=== PATIENT | female | born 1945 | race Caucasian/White ===

== ENCOUNTER 2017-05-04 13:52 | Emergency (ER) | payer OTHER ==
[~2017-05-04] VITALS: Ht 157.5 cm; Wt 107.5 kg
[2017-05-04] MEDS ORDERED: PHENYLEPHRINE 0.5% 15 ML BTL NS ONE (14:00)
[2017-05-04 14:16] VITALS: BP 159/54
--- NOTE | 2017-05-04 15:20 | NUR ---
Patient ambulated to bed 7. RN evaluating patient at bedside.
--- NOTE | 2017-05-04 15:28 | NUR ---
71/F c/o right sided pressure headache since yesterday. Pt had a rhinorocket inserted into right nostril to control epistaxis. Pt states the headache worsened after the insertion. Pt c/o 10/10 pain. No bleeding noted. AOX4, cook islander speaking. VSS.
--- NOTE | 2017-05-04 15:29 | NUR ---
Patient being evaluated by Dr. Dixon at bedside.
[2017-05-04] MEDS ORDERED: ACETAMINOPHEN/CODEINE 300/30MG 1 TAB PO ONE (15:45)
[2017-05-04 16:04] VITALS: BP 157/87
--- NOTE | 2017-05-04 16:05 | NUR ---
Patient discharged with v/s stable. Written and verbal after care instructions given and explained. Patient verbalized understanding. Ambulatory with steady gait. All questions addressed prior to discharge. Advised to follow up with PMD.
== END 2017-05-04 16:05 | disposition home or self-care (01) ==
LOC: MED 13:52
DX: R51 Headache (principal); R04.0 Epistaxis; I25.10 Atherosclerotic heart disease of native coronary artery without angina pectoris; E11.9 Type 2 diabetes mellitus without complications; I10 Essential (primary) hypertension; Z90.49 Acquired absence of other specified parts of digestive tract
CPT/HCPCS: 99283

== ENCOUNTER 2019-02-21 13:30 | Emergency (ER) | payer MEDICAID, OTHER ==
[~2019-02-21] VITALS: Ht 162.6 cm; Wt 86.2 kg
[2019-02-21 13:40] VITALS: BP 159/46
--- NOTE | 2019-02-21 13:40 | NUR ---
Patient ambulated to bed 10. RN evaluating patient at bedside.
--- NOTE | 2019-02-21 13:44 | NUR ---
Dr. Julio evaluating patient at bedside.
--- NOTE | 2019-02-21 13:45 | NUR ---
c/o left ear pain and throat pain x 1 wk-- awoke today with headache and right facial droop--clear speech, ambulatory with steady gait, equal welding operator/pushes/pull, unequal forhead wrinkle----md at bedside Addendum: 02/21/19 at 1435 by MED1 AT BEDSIDE
[2019-02-21] MEDS ORDERED: MORPHINE SULFATE 4 MG/ML SYR IVP ONE (14:00)
[2019-02-21] MEDS ORDERED: AMPICILLIN/SULBACTAM 3 GM in NACL 0.9% 100 ML IV ONE (14:00)
[2019-02-21 14:14] LABS: BASOPHILS % (AUTO) 0.6 % (0.0-2.0); EOSINOPHILS # (AUTO) 0.1 K/uL (0-0.4); EOSINOPHILS % (AUTO) 3.1 % (0.0-4.0); HEMATOCRIT 38.7 % (36-48); HEMOGLOBIN 12.9 g/dL (12.0-16.0); LYMPHOCYTES # (AUTO) 1.1 K/uL (2.5-16.5); LYMPHOCYTES % (AUTO) 23.9 % (20.5-51.1); MEAN CORPUSCULAR HEMOGLOBIN 28 pg (27-31); MEAN CORPUSCULAR HGB CONC 33 g/dL (33-37); MEAN CORPUSCULAR VOLUME 84.2 fL (80-94); MONOCYTES # (AUTO) 0.4 K/uL (0.8-1.0); MONOCYTES % (AUTO) 7.9 % (1.7-9.3); NEUTROPHILS % (AUTO) 64.5 % (42.2-75.2); PLATELET COUNT (AUTO) 82 K/uL (140-450); RED CELL DISTRIBUTION WIDTH 13.5 % (11.6-13.7); WHITE BLOOD COUNT (AUTO) 4.6 K/uL (4.8-10.8)
[2019-02-21] MEDS ORDERED: AMPICILLIN/SULBACTAM 3 GM VIAL ONE (14:15)
[2019-02-21 14:27] LABS: ANION GAP 10.5 (8-16); CARBON DIOXIDE 25.2 mmol/L (21-32); CHLORIDE 106 mmol/L (98-107); CREATININE 0.7 mg/dL (0.6-1.3); GLUCOSE 264 mg/dL (74-106); POTASSIUM 3.7 mmol/L (3.5-5.1); SODIUM SERUM 138 mmol/L (136-145); UREA NITROGEN, BLOOD 10 mg/dL (7-18)
[2019-02-21 14:32] LABS: ALBUMIN 3.5 g/dL (3.4-5.0); ASPARTATE AMINOTRANSFERASE 18 U/L (15-37); TOTAL BILIRUBIN 0.7 mg/dL (0.0-1.0)
--- NOTE | 2019-02-21 14:38 | NUR ---
UNABLE TO PROVIDE URINE AT THIS TIME.
--- NOTE | 2019-02-21 15:11 | NUR ---
Dr. Julio reevaluating patient at bedside.
[2019-02-21 15:35] LABS: APPEARANCE,URINE CLEAR (CLEAR); BILIRUBIN,URINE NEGATIVE (NEGATIVE); BLOOD, URINE NEGATIVE (NEGATIVE); COLOR,URINE YELLOW (YELLOW); LEUKOCYTE ESTERASE ,URINE NEGATIVE (NEGATIVE); NITRITE, URINE NEGATIVE (NEGATIVE); UGLUCOSE TRACE (NEGATIVE)
[2019-02-21 16:02] VITALS: BP 137/53
--- NOTE | 2019-02-21 16:02 | NUR ---
Patient discharged with v/s stable. Written and verbal after care instructions given and explained. Patient alert, oriented and verbalized understanding of instructions. Ambulatory with steady gait. All questions addressed prior to discharge. ID band removed. Patient advised to follow up with PMD. Rx of TYLENOL, PREDNISONE, KEFLEX & ARTIFICIAL TEARS 1%-1% OPH YESSI given. Patient educated on indication of medication including possible reaction and side effects. Opportunity to ask questions provided and answered.
--- NOTE | 2019-02-21 16:02 | NUR ---
Patient discharged with v/s stable. Written and verbal after care instructions given and explained. Patient alert, oriented and verbalized understanding of instructions. Ambulatory with steady gait. All questions addressed prior to discharge. ID band removed. Patient advised to follow up with PMD. Rx of PREDNISONE/METFORMIN/EYE DROPS/KEFLEX given. Patient educated on indication of medication including possible reaction and side effects. Opportunity to ask questions provided and answered.
== END 2019-02-21 16:02 | disposition home or self-care (01) ==
LOC: MED 13:30
DX: G51.0 Bell's palsy (principal); H60.12 Cellulitis of left external ear; E11.9 Type 2 diabetes mellitus without complications; I10 Essential (primary) hypertension
CPT/HCPCS: 36415; 80053; 81003; 85025; 87040; 93005; 96365; 96375; 99284; J0295; J2270

== ENCOUNTER 2020-08-02 10:13 | Emergency (ER) | payer OTHER, MEDICAID, SELFPAY ==
[~2020-08-02] VITALS: Ht 157.5 cm; Wt 99.8 kg
--- NOTE | 2020-08-02 10:13 | NUR ---
C/O SUBJECTIVE FEVER, COUGH, BODY ACHE, VOMITING X 2 WEEKS. MED HX: DM, HTN, ASTHMA
[2020-08-02 10:31] VITALS: BP 126/49
--- NOTE | 2020-08-02 11:06 | NUR ---
COVID SWAB DONE. SENT TO LAB.
--- NOTE | 2020-08-02 11:24 | NUR ---
ORAL TEMP 101.6 AT THIS TIME.
--- NOTE | 2020-08-02 11:25 | NUR ---
PATIENT AMBULATED TO BED 10.
--- NOTE | 2020-08-02 11:29 | NUR ---
Note manny in EDM - 08/02/20 at 1138 by MED1 Pt in room, HOB elevated. Given acetaminophen per protocol, temp 101.4. Pt states generalized pain at 7/10.
--- NOTE | 2020-08-02 11:32 | NUR ---
Dyana bryant in [facility] - 08/02/20 at 1139 by MED1 instrument technician at bedside at this time.
--- NOTE | 2020-08-02 11:36 | NUR ---
XR at pt bedside.
[2020-08-02] MEDS ORDERED: ACETAMINOPHEN EXTRA STRENGTH 500 MG TAB PO ONE (11:55)
[2020-08-02 12:06] LABS: BASOPHILS % (AUTO) 0.3 % (0.0-2.0); HEMATOCRIT 37.1 % (36-48); HEMOGLOBIN 12.4 g/dL (12.0-16.0); LYMPHOCYTES # (AUTO) 1.3 K/uL (2.5-16.5); LYMPHOCYTES % (AUTO) 21.2 % (20.5-51.1); MEAN CORPUSCULAR HEMOGLOBIN 27 pg (27-31); MEAN CORPUSCULAR HGB CONC 33 g/dL (33-37); MEAN CORPUSCULAR VOLUME 80.5 fL (80-94); MONOCYTES # (AUTO) 0.9 K/uL (0.8-1.0); MONOCYTES % (AUTO) 15.2 % (1.7-9.3); NEUTROPHILS # (AUTO) 3.8 K/uL (1.8-7.7); NEUTROPHILS % (AUTO) 63.3 % (42.2-75.2); PLATELET COUNT (AUTO) 110 K/uL (140-450); RED BLOOD CELL COUNT(AUTO) 4.61 MIL/uL (4.20-5.40)
[2020-08-02 12:17] LABS: ANION GAP 11.3 (8-16); CARBON DIOXIDE 27.2 mmol/L (21-32); CHLORIDE 92 mmol/L (98-107); GLUCOSE 173 mg/dL (74-106); POTASSIUM 3.5 mmol/L (3.5-5.1); SODIUM SERUM 127 mmol/L (136-145); UREA NITROGEN, BLOOD 18 mg/dL (7-18)
[2020-08-02 12:28] LABS: ALBUMIN 3.5 g/dL (3.4-5.0); ASPARTATE AMINOTRANSFERASE 35 U/L (15-37); TOTAL BILIRUBIN 0.6 mg/dL (0.0-1.0)
[2020-08-02] MEDS ORDERED: ONDANSETRON 4 MG/2 ML VIAL ONE (13:51)
[2020-08-02] MEDS ORDERED: ONDANSETRON 4 MG/2 ML VIAL IVP ONE (14:30)
--- NOTE | 2020-08-02 15:50 | NUR ---
PT IS SLEEPING IN THE BED. VSS SHOWED ON THE MONITOR. WILL CONTINUE MONITORING PT'S VITAL SIGNS.
--- NOTE | 2020-08-02 16:53 | NUR ---
PT IS AWAITING FOR CLINICAL PLACEMENT TO BE TX.
--- NOTE | 2020-08-02 17:35 | NUR ---
Patient to be transferred to [facility] ROOM 225. Is being transferred due to INSURANCE. Receiving facility has accepting physician and available space. ER physician has signed transfer form. Patient or responsible constitution party has agreed to transfer and signed form. Patient belongings inventoried and will be sent with patient. Copy of nursing notes, lab reports, EKG, Physicians Orders and X-rays to be sent with patient. Report called to ELVIN SCOTT RN at receiving facility. [facility] ambulance service has been called for transfer. ETA is AT 1930.
--- NOTE | 2020-08-02 18:17 | NUR ---
DIABETIC DINNER PROVIDED TO PT TO BEDSIDE.
--- NOTE | 2020-08-02 19:14 | NUR ---
REPORT RECEIVED FROM HANG DIGGS FOR CONTINUITY OF CARE
--- NOTE | 2020-08-02 19:14 | NUR ---
REPORT GIVEN TO DONTAE BRUNSON. TX OF CARE AT THIS TIME.
--- NOTE | 2020-08-02 19:30 | NUR ---
[facility] TRANSPORT AT BEDSIDE
--- NOTE | 2020-08-02 19:36 | NUR ---
Patient to be transferred to [facility]. Is being transferred due to INSURANCE. Receiving facility has accepting physician and available space. ER physician has signed transfer form. Patient or responsible republican has agreed to transfer and signed form. Patient belongings inventoried and will be sent with patient. Copy of nursing notes, lab reports, EKG, Physicians Orders and X-rays to be sent with patient. Report called to TYLER DIGGS at receiving facility. [facility] ambulance service has arrived. ETA is 25-30 to [facility] facility.
[2020-08-02 19:49] VITALS: BP 106/68
--- NOTE | 2020-08-02 19:49 | NUR ---
AMBULANCE TRANSPORT LEFT TO FACILITY ETA 25-30 MIN.
--- NOTE | 2020-08-03 18:42 | NUR ---
Covid results received from lab. Results = POSITIVE. Hard copy requested from lab and placed in infection controls mailbox.
== END 2020-08-02 19:49 | disposition short-term general hospital (02) ==
LOC: MED 10:13
DX: U07.1 COVID-19 (principal); J12.89 Other viral pneumonia; R09.02 Hypoxemia; E11.9 Type 2 diabetes mellitus without complications; I10 Essential (primary) hypertension; I51.89 Other ill-defined heart diseases
CPT/HCPCS: 36415; 71045; 80053; 83605; 83880; 85025; 87040; 87426; 96374; 99285; J2405; Q0092; U0003; 99284